=== PATIENT | female | born 1960 | race Caucasian/White ===

== ENCOUNTER → 2016-12-05 | Day surgery (SDC) | payer MEDICARE, OTHER ==
[2016-12-05 12:47] LABS: HCT 41.4 % (37.0-47.0); HGB 14.4 g/dl (12.5-16.0); MCH 31.2 pg (25.0-31.0); MCHC 34.8 g/dL (32.0-36.0); MCV 89.8 fL (78.0-100.0); MPV 9.4 fL (6.0-9.5); RBC 4.61 M/uL (4.20-5.40); RDW 12.6 % (11.5-14.0); WBC 8.8 K/uL (4.0-10.5)
== END | disposition home or self-care (01) ==
LOC: FAS 10:29
PROVIDERS: Legal Medicine
DX: M75.02 Adhesive capsulitis of left shoulder (principal); M79.7 Fibromyalgia; M41.9 Scoliosis, unspecified; M19.90 Unspecified osteoarthritis, unspecified site; H40.9 Unspecified glaucoma; Z88.0 Allergy status to penicillin; Z88.6 Allergy status to analgesic agent; Z88.8 Allergy status to other drugs, medicaments and biological substances; Z90.710 Acquired absence of both cervix and uterus; Z90.49 Acquired absence of other specified parts of digestive tract; Z96.651 Presence of right artificial knee joint; Z79.899 Other long term (current) drug therapy; Z79.891 Long term (current) use of opiate analgesic
CPT/HCPCS: 36415; 97161; J1170; J2704; J2795; J3010